=== PATIENT | female | born 1995 | race Caucasian/White ===

== ENCOUNTER 2016-09-15 13:04 | Emergency (ER) | payer MEDICAID ==
[~2016-09-15] VITALS: Ht 167.6 cm; Wt 96.0 kg
[2016-09-15 13:07] VITALS: Ht 167.6 cm; Wt 96.0 kg
[2016-09-15] MEDS ORDERED: ONDANSETRON 4 MG INJ IV STA (13:23)
[2016-09-15] MEDS ORDERED: SOD CHLORIDE 0.9% 1,000 ML IV STA (13:23)
--- NOTE | 2016-09-15 13:23 | ERA ---
ER Documentation Chief Complaint Date/Time DATE: 09/15/16 TIME: 13:23 Chief Complaint Abdominal pain, vomiting and diarrhea HPI The patient is a 21-year-old female, presenting to the ER because of abdominal pain, associated nausea, vomiting, diarrhea for 1 day. She denies similar symptoms previously, denies hematochezia, hematemesis, fever, chills, neck pain , chest pain, dyspnea, dysuria, polyuria. She does smoke half a pack a day, denies drinking Past medical history: Asthma Past surgical history: None ROS All systems reviewed and are negative except as per history of present illness. Allergies Allergies: Coded Allergies: ibuprofen (Verified Allergy, Unknown, 09/15/16) THROAT SWELLING nitrofurantoin (Verified Allergy, Unknown, 09/15/16) THROAT SWELLING PMhx/Soc Medical and Surgical Hx: pt denies Medical Hx, pt denies Surgical Hx Hx Alcohol Use: No Hx Substance Use: No Hx Tobacco Use: No Physical Exam Vitals Vital Signs Date Time Temp Pulse Resp B/P Pulse Ox O2 Delivery O2 Flow Rate FiO2 09/15/16 13:07 98.7 99 24 162/94 95 Physical Exam Const: No acute distress. Head: Atraumatic. Eyes: Normal Conjunctiva. ENT: Normal External Ears, Nose and Mouth. Neck: Full range of motion. No meningismus. Resp: Clear to auscultation bilaterally. Cardio: Regular rate and rhythm. Abd: Soft, non distended, normal bowel sounds, diffuse and vague abdominal tenderness, more tender at epigastric and left upper quadrant Skin: No petechiae or rashes. Back: No midline or flank tenderness. Ext: No cyanosis, or edema. Neur: Awake and alert. No focal deficit Psych: Normal Mood and Affect. Result Diagram: 09/15/16 1340 09/15/16 1340 Results 24 hrs Laboratory Tests Test 09/15/16 13:40 09/15/16 13:46 White Blood Count 17.410^3/ul Red Blood Count 5.7910^6/ul Hemoglobin 15.7g/dl Hematocrit 45.9% Mean Corpuscular Volume 79.3fl Mean Corpuscular Hemoglobin 27.1pg Mean Corpuscular Hemoglobin Concent 34.2g/dl Red Cell Distribution Width 14.1% Platelet Count 89556^3/UL Mean Platelet Volume 10.7fl Neutrophils % 93.0% Lymphocytes % 3.2% Monocytes % 3.1% Eosinophils % 0.2% Basophils % 0.1% Nucleated Red Blood Cells % 0.0/100WBC Neutrophils # 16.210^3/ul Lymphocytes # 0.610^3/ul Monocytes # 0.510^3/ul Eosinophils # 0.010^3/ul Basophils # 0.010^3/ul Nucleated Red Blood Cells # 0.010^3/ul Sodium Level 135mmol/L Potassium Level 3.8mmol/L Chloride Level 104mmol/L Carbon Dioxide Level 23mmol/L Anion Gap 12 Blood Urea Nitrogen 8mg/dl Creatinine 0.56mg/dl Glucose Level 104mg/dl Calcium Level 9.2mg/dl Total Bilirubin 0.7mg/dl Direct Bilirubin 0.00mg/dl Indirect Bilirubin 0.7mg/dl Aspartate Amino Transf (AST/SGOT) 20IU/L Alanine Aminotransferase (ALT/SGPT) 28IU/L Alkaline Phosphatase 90IU/L Total Protein 8.2g/dl Albumin 4.7g/dl Globulin 3.50g/dl Albumin/Globulin Ratio 1.34 Lipase 40U/L Bedside Urine pH (LAB) 5.5 Bedside Urine Protein (LAB) 1+ Bedside Urine Glucose (UA) Negative Bedside Urine Ketones (LAB) 2+ Bedside Urine Blood 1+ Bedside Urine Nitrite (LAB) Negative Bedside Urine Leukocyte Esterase (L Negative Current Medications Medications (Trade) Dose Ordered Sig/Vriaj Route PRN Reason Start Time Stop Time Status Last Admin Dose Admin Sodium Chloride (NS) 1,000 ml @ 1,000 mls/hr Q1H STAT IV 09/15/16 13:23 09/15/16 14:22 DC 09/15/16 13:45 Ondansetron HCl (Zofran Inj) 4 mg ONCE STAT IV 09/15/16 13:23 09/15/16 13:26 DC 09/15/16 13:45 Loperamide HCl (Imodium Cap) 4 mg ONCE ONCE PO 09/15/16 13:30 09/15/16 13:31 DC 09/15/16 13:54 Procedures/MDM MEDICAL MAKING DECISION: The patient is a 21-year-old female, presenting with acute abdominal pain of unclear etiology. She was treated with 1 L normal saline for clinical dehydration, Zofran 4 mg IV for nausea and Imodium 4 mg p.o. for diarrhea with good response. She declined abdominal pelvic CT. Risks , benefits, alternatives were explained to the patient. Risks include but not limited to and permanent disability The differential diagnoses considered include but are not limited to food poisoning, colitis, cholelithiasis, cholecystitis, cystitis, pancreatitis, hepatitis, gastritis, peptic ulcer disease, gastric ulcer, appendicitis, diverticulitis, cholangitis, choledocholithiasis, partial small bowel obstruction. Departure Diagnosis: Primary Impression: Abdominal pain Condition: Stable Comments The patient signed out AGAINST MEDICAL ADVICE. Risks, benefits, alternatives were explained to the patient. Risks include but not limited to and permanent disability The patient's blood pressure was elevated (>120/80) but appears stable without evidence of hypertension emergency or urgency. The patient was counseled about the risks of hypertension and urged to pursue outpatient monitoring and therapy within a week with their primary care physician. JIGAR OWENS MD Sep 15, 2016 13:23
[2016-09-15] MEDS ORDERED: LOPERAMIDE 2 MG CAP PO ONE (13:30)
[2016-09-15 13:41] LABS: URINE BLOOD (Dip) POC 1+ (NEGATIVE)
[2016-09-15 13:45] LABS: ADD SCAN DIFF NO
[2016-09-15 13:49] LABS: ABNORMAL IP MESSAGE 1; BASOPHILS % 0.1 % (0.0-2.0); EOSINOPHILS % 0.2 % (0.0-7.0); HEMATOCRIT 45.9 % (37.0-47.0); HEMOGLOBIN 15.7 g/dl (12.0-16.0); LYMPHOCYTES # 0.6 10^3/ul (0.8-2.9); LYMPHOCYTES % 3.2 % (15.0-51.0); MEAN CORPUSCULAR HEMOGLOBIN 27.1 pg (29.0-33.0); MEAN CORPUSCULAR HGB CONC 34.2 g/dl (32.0-37.0); MEAN CORPUSCULAR VOLUME 79.3 fl (82.0-101.0); MEAN PLATELET VOLUME 10.7 fl (7.4-10.4); MONOCYTE # 0.5 10^3/ul (0.3-0.9); MONOCYTES % 3.1 % (0.0-11.0); NEUTROPHIL # 16.2 10^3/ul (1.6-7.5); PLATELET COUNT 272 10^3/UL (140-415); RED BLOOD COUNT 5.79 10^6/ul (4.20-5.40); RED CELL DISTRIBUTION WIDTH 14.1 % (11.5-14.5); WHITE BLOOD COUNT 17.4 10^3/ul (4.8-10.8)
[2016-09-15 14:06] LABS: ALBUMIN 4.7 g/dl (3.3-4.9); ALBUMIN/GLOBULIN RATIO 1.34; BILIRUBIN,INDIRECT 0.7 mg/dl (0-1.1); BILIRUBIN,TOTAL 0.7 mg/dl (0.2-1.3); CALCIUM 9.2 mg/dl (8.4-10.2); CREATININE 0.56 mg/dl (0.44-1.00); POTASSIUM 3.8 mmol/L (3.5-5.1); TOTAL PROTEIN 8.2 g/dl (6.1-8.1)
== END 2016-09-16 07:38 | disposition left against medical advice (07) ==
LOC: FTE 13:04
DX: R10.9 Unspecified abdominal pain (principal); R11.2 Nausea with vomiting, unspecified; J45.909 Unspecified asthma, uncomplicated; F17.210 Nicotine dependence, cigarettes, uncomplicated
CPT/HCPCS: 80053; 81003; 83690; 85025; J2405; J7030; Z7610; 36415; 96374